=== PATIENT | male | born 1980 | race American Indian/Alaskan Native ===

== ENCOUNTER 2021-03-15 08:11 | Emergency (ER) | payer SELFPAY ==
[2021-03-15 08:22] VITALS: BP 149/98
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
--- NOTE | 2021-03-15 10:26 | XRay Report ---
XR shoulder 2+V LT INDICATION / CLINICAL INFORMATION: left shoulder injury. COMPARISON: None available. FINDINGS: No acute fracture. Normal alignment. Joint spaces are preserved. The tubercle of the clavicle is el ongated and articulates with the coracoid process of the scapula, normal anatomic variant. No destruc tive osseous lesion or suspicious periosteal reaction. Impression: 1.No acute fracture. Signer Name: Charles Hall MD Signed: 03/15/2021 10:21 AM Workstation Name: [id number]
== END 2021-03-15 10:49 ==
LOC: ED 08:11
DX: M25.512 Pain in left shoulder (principal); F12.90 Cannabis use, unspecified, uncomplicated; Z88.6 Allergy status to analgesic agent